=== PATIENT | female | born 1990 | race Asian ===

== ENCOUNTER → 2018-05-06 | Outpatient (CLI) | payer OTHER | LOC: M RAD 08:40 | DX: Z36.9 Encounter for antenatal screening, unspecified (principal); Z3A.20 20 weeks gestation of pregnancy | CPT/HCPCS: 76811 ==

== ENCOUNTER → 2018-05-25 | Outpatient (CLI) | payer OTHER | LOC: M RAD 13:05 | DX: O32.2XX0 Maternal care for transverse and oblique lie, not applicable or unspecified (principal); Z36.89 Encounter for other specified antenatal screening; Z3A.22 22 weeks gestation of pregnancy | CPT/HCPCS: 76817 ==

== ENCOUNTER → 2018-06-10 | Outpatient (CLI) | payer OTHER ==
[2018-06-10 16:06] LABS: HEMATOCRIT 40.8 % (36.0-47.0); HEMOGLOBIN 14.2 g/dl (12.0-15.5); MEAN CORPUSCULAR HEMOGLOBIN 32.1 pg (27.0-33.0); MEAN CORPUSCULAR HGB CONC 34.8 g/dl (32.0-36.5); MEAN CORPUSCULAR VOLUME 92.3 fl (80.0-96.0); PLATELET COUNT, AUTOMATED 225 10^3/uL (150-450); RED BLOOD COUNT 4.42 10^6/uL (4.00-5.40); RED CELL DISTRIBUTION WIDTH 13.8 % (11.5-14.5)
[2018-06-10 16:44] LABS: GLUCOSE CHALLENGE TEST 1 HOUR 174 MG/DL (LESS THAN 140)
[2018-06-10 16:44] LABS: FREE T4 1.06 NG/DL (0.76-1.46)
== END ==
LOC: M LAB 13:11
DX: Z34.82 Encounter for supervision of other normal pregnancy, second trimester (principal); Z36.89 Encounter for other specified antenatal screening

== ENCOUNTER → 2018-06-17 | Outpatient (CLI) | payer OTHER ==
[2018-06-17 08:07] LABS: GLUCOSE, FASTING 130 MG/DL (LESS THAN 95)
[2018-06-17 09:06] LABS: 1 HR GLUCOSE 273 MG/DL (LESS THAN 180)
[2018-06-17 09:57] LABS: 2 HR GLUCOSE 244 MG/DL (LESS THAN 155)
[2018-06-17 11:12] LABS: 3 HR GLUCOSE 142 MG/DL (LESS THAN 140)
== END ==
LOC: M LAB 07:07
DX: Z36.89 Encounter for other specified antenatal screening (principal); Z3A.00 Weeks of gestation of pregnancy not specified
CPT/HCPCS: 82951

== ENCOUNTER → 2018-06-21 | Outpatient (REF) | payer OTHER | LOC: M LAB REF 17:21 | DX: Z34.82 Encounter for supervision of other normal pregnancy, second trimester (principal) ==

== ENCOUNTER → 2018-07-20 | Outpatient (CLI) | payer OTHER | LOC: M RAD 08:54 | DX: O24.410 Gestational diabetes mellitus in pregnancy, diet controlled (principal) | CPT/HCPCS: 76816 ==

== ENCOUNTER → 2018-08-10 | Outpatient (CLI) | payer OTHER | LOC: M RAD 17:07 | DX: O24.410 Gestational diabetes mellitus in pregnancy, diet controlled (principal); Z3A.35 35 weeks gestation of pregnancy | CPT/HCPCS: 76816 ==

== ENCOUNTER → 2018-08-18 | Outpatient (REF) | payer OTHER ==
[~2018-08-18] MED LIST: IBUP-1114 PO; MAPA500T17 PO; METF500T13 PO; PRENTAB9 PO
== END ==
LOC: M LAB REF 17:11
PROVIDERS: ATTEND Obstetrics & Gynecology
DX: Z36.89 Encounter for other specified antenatal screening (principal); O09.213 Supervision of pregnancy with history of pre-term labor, third trimester; Z3A.00 Weeks of gestation of pregnancy not specified

== ENCOUNTER 2018-08-27 06:08 | Outpatient (CLI) | payer OTHER ==
[~2018-08-27] VITALS: Ht 157.5 cm; Wt 76.9 kg
[2018-08-27] MEDS ORDERED: METF500T13 PO (06:27)
[2018-08-27] MEDS ORDERED: PRENTAB9 PO (06:27)
[2018-08-27 06:29] VITALS: BP 115/82
[2018-08-27 07:11] VITALS: BP 129/74
[2018-08-27 08:04] VITALS: BP 114/70
--- NOTE | 2018-09-02 10:00 | IPN ---
DATE: 08/27/2018 28-year-old, (G) 2, para (P) 0, female at 36 and 6/7 weeks gestation who presents for removal of cerclage. Consent for cerclage removal is signed. OBJECTIVE: Afebrile. Vital signs stable. No apparent distress. Abdomen nontender. Gravid. heart tones Category 1. Contractions irregular. PROCEDURE NOTE: Speculum was placed in the vagina. Cerclage was visualized tied at the 12 o'clock position. Ring forceps used to grab it and elevate the stitch. Scissors were used to excise the stitch below the level of the knot. The stitch was removed in its entirety. The patient tolerated the procedure well. ASSESSMENT: 28-year-old, G2, P0, female at 36+ weeks gestation who presents for cerclage removal. Cerclage removed without difficulty. Cervix is 2-3 cm, 50% effaced, -2 station. Followup for routine care.
== END 2018-08-27 08:08 | disposition home or self-care (01) ==
LOC: M LDO 06:08
PROVIDERS: ATTEND Obstetrics & Gynecology
DX: O34.43 Maternal care for other abnormalities of cervix, third trimester (principal); N75.0 Cyst of Bartholin's gland; Z3A.36 36 weeks gestation of pregnancy
CPT/HCPCS: 59025; G0378; G0463

== ENCOUNTER 2018-09-03 16:06 | Inpatient (IN) | payer OTHER ==
[~2018-09-03] VITALS: Ht 157.5 cm; Wt 78.0 kg
[2018-09-03] VITALS (22 sets, daily range): BP systolic 77–189; BP diastolic 42–134
[~2018-09-03 16:06] MED LIST changes: -IBUP-1114 PO; -MAPA500T17 PO
[2018-09-03] MEDS ORDERED: LACTATED RINGER'S 1000 ML IV STA (16:46)
[2018-09-03] MEDS ORDERED: LR 1,000 ML IV SCH ×2 (17:00→19:52)
--- NOTE | 2018-09-03 17:29 | IPNPDOC ---
Text Note Date of Service The patient was seen on 09/03/18. NOTE Subjective: 28-year-old admitted for rupture of membranes and contractions. She is uncomfortable and would like an epidural. Objective: Gravid and visibly uncomfortable. Bartholin cyst is noted on the right. heart rate: Category 1 tracing, baseline is about 150 bpm, moderate variability, accelerations and no decelerations. Difficult to monitor due to maternal discomfort. Florin: Contractions every 2-3 minutes Assessment: 28-year-old admitted for rupture of membranes and contractions Plan: FSE applied for better monitoring. Patient will get an epidural once her lab results are back GME ATTESTATION GME ATTESTATION My faculty preceptor for this patient encounter was physically present during the encounter and was fully available. All aspects of the patient interview, examination, medical decision making process, and medical care plan development were reviewed and approved by the faculty preceptor. The faculty preceptor is aware and concurs with the plan as stated in the body of this note and will attest to such by his/her cosignature. HAFSA DAY DO Sep 03, 2018 17:29 Blessing Kohler CNM Sep 03, 2018 17:51
[2018-09-03 17:32] LABS: HEMATOCRIT 44.7 % (36.0-47.0); HEMOGLOBIN 15.9 g/dl (12.0-15.5); MEAN CORPUSCULAR HEMOGLOBIN 31.8 pg (27.0-33.0); MEAN CORPUSCULAR HGB CONC 35.6 g/dl (32.0-36.5); MEAN CORPUSCULAR VOLUME 89.4 fl (80.0-96.0); PLATELET COUNT, AUTOMATED 226 10^3/uL (150-450); WHITE BLOOD COUNT 13.9 10^3/uL (4.0-10.0)
[2018-09-03] MEDS ORDERED: FENTANYL 2MCG/ML ROPIVACAINE 0.2% IN 0.9% NACL 100ML IVBAG As Ordered ONE (18:03)
[2018-09-03] MEDS ORDERED: FENTANYL/ROPIVACAINE/NACL BAG 100 ML EPIDURAL SCH (18:30)
[2018-09-03] MEDS ORDERED: diphenhydrAMINE INJ 50MG/ML VIAL (J1200) IV PRN (18:30)
[2018-09-03] MEDS ORDERED: LACTATED RINGER'S 1000 ML IV PRN (18:30)
[2018-09-03] MEDS ORDERED: EPIDURAL COMMENT XX SCH (18:30)
[2018-09-03] MEDS ORDERED: EPIDURAL/PCA KEYS XX PRN (18:30)
[2018-09-03] MEDS ORDERED: NALOXONE INJ 0.4 MG/1 ML VIAL (J2310) IV PRN (18:30)
[2018-09-03] MEDS ORDERED: ONDANSETRON 4MG/2ML VIAL (J2405) IV PRN (18:30)
[2018-09-03] MEDS ORDERED: REFRIGERATOR IV KEYS XX PRN (18:30)
--- NOTE | 2018-09-03 18:33 | HPE ---
DATE OF ADMISSION: 09/03/2018 CHIEF COMPLAINT: Rupture of membranes. HISTORY OF PRESENT ILLNESS: Velasquez is a 28-year-old G2, P-01-0-0 at 36 weeks 6 days estimated gestational age by first-trimester ultrasound dated 03/18/2018. Her estimated date of confinement is 09/25/2018. She is presenting complaining of contractions that started around noon. She states that they are about every 5 minutes and last for about 30 seconds. When she sat down in the triage area, she had a large gush of fluid that was clear. She is feeling the baby move. She denies any bleeding or discharge. COURSE: The patient initiated care with [facility] in the first trimester. She had a Carter cerclage placed at 13 weeks and received Killona injections starting at 16 weeks. Her cerclage was removed 08/27/2018. She was also diagnosed A2 gestational diabetes and is on metformin 500 mg daily. LABORATORIES: Blood type is B positive, antibody screen negative, rubella immune, VDRL nonreactive, hepatitis B surface antigen negative, HIV negative, hepatitis C nonreactive, chlamydia negative, gonorrhea negative. Hope showed low probability female fetus. Her diabetes screen was 174. A 3-hour GTT was 130/273/244/142. The patient is GBS negative. OBSTETRICAL ULTRASOUND: Anatomy scan from 05/06/2018 showed an anterior placenta without previa or abruption. Most recent ultrasound from 08/10/2018 showed cephalic presentation without anomaly. OBSTETRICAL HISTORY: In 2017 premature delivery of a fetus at 22 weeks gestational age. MEDICAL HISTORY: 1. A2 gestational diabetes mellitus. 2. Bartholin cyst. MEDICATIONS: - metformin 500 mg daily - vitamins - Killona injections, last dose given on 09/01/2018. PAST SURGERIES: None. ALLERGIES: None. SOCIAL HISTORY: The patient is . Denies any tobacco, alcohol, or drugs. PHYSICAL EXAMINATION: VITAL SIGNS: Blood pressure 142/92, pulse 111, temperature 98.0, respiratory rate 18. ABDOMEN: Gravid. Sterile vaginal exam was 3 cm dilated, 90% effaced, -1 station monitor: Category 1 tracing with a baseline of 150 beats per minute. Moderate variability. Acceleratoins. No decelerations.. Tocometer: Contractions every 3-4 minutes. ASSESSMENT AND PLAN: 1. Intrauterine (IUP) at 36 weeks 6 days estimated gestation who is presenting grossly ruptured in active labor. 2. GBS negative. No antibiotics are necessary. 3. Anticipate spontaneous panel delivery. My faculty preceptor for this patient encounter was physically present during the encounter and was fully available. All aspects of the patient interview, examination, medical decision making process, and medical care plan development were reviewed and approved by the faculty preceptor. The faculty preceptor is aware and concurs with the plan as stated in the body of this note and will attest to such by his/her co-signature.
[2018-09-03] MEDS: ePHEDrine SULFATE 25 MG/5 ML(5MG/ML) SYRINGE IV PRN ×2 (19:17→19:23)
--- NOTE | 2018-09-03 19:38 | IPNPDOC ---
Text Note Date of Service The patient was seen on 09/03/18. NOTE Comfortable with epidural UC 2-3 minutes apart x 45-60 seconds FH 150, moderate variability, + accels SVE 6/100/-1 Fluid remains clear Consider pitocin augmentation VS,Fishbone, I+O VS, Fishbone, I+O Laboratory Tests 09/03/18 17:18 Red Blood Count 5.00, Mean Corpuscular Volume 89.4, Mean Corpuscular Hemoglobin 31.8, Mean Corpuscular Hemoglobin Concent 35.6, Red Cell Distribution Width 14.6 H Blessing Kohler CNM Sep 03, 2018 19:38
[2018-09-03] MEDS ORDERED: OXYTOCIN DRIP 30 UNITS in APPROPRIATE DILUENT 1 EA IV SCH (20:00)
[2018-09-03 23:24] LABS: CORD GAS ABE A -6.4; CORD GAS ABE V -5.4; CORD GAS HCO3 A 21.5 MEQ/L; CORD GAS HCO3 V 19.9 MEQ/L; CORD GAS O2 SAT A 72.4 %; CORD GAS O2 SAT V 81.9 %; CORD GAS PCO2 A 51.7 mmHg; CORD GAS PCO2 V 38.7 mmHg; CORD GAS PH A 7.237 UNITS; CORD GAS PH V 7.33 UNITS; CORD GAS SBC A 18.7 MEQ/L; CORD GAS SBC V 19.7 MEQ/L; CORD GAS TCO2 A 23.1 MEQ/L; CORD GAS TCO2 V 21.1 MEQ/L
[2018-09-04] VITALS (11 sets, daily range): BP systolic 112–176; BP diastolic 64–82
[2018-09-04] MEDS ORDERED: MEASLES,MUMPS,RUBELLA VACCINE INJ (MMR-II) (90707) SC SCH (00:30)
[2018-09-04] MEDS ORDERED: DOCUSATE SODIUM 100 MG CAP PO PRN (00:30)
[2018-09-04] MEDS ORDERED: RHOGAM 300 MCG (1500 IU) INJ (J2790) IM SCH (00:30)
[2018-09-04] MEDS ORDERED: METHYLERGONOVINE MALEATE 0.2 MG TAB PO PRN (00:30)
[2018-09-04] MEDS ORDERED: DIBUCAINE 1% OINTMENT 30GM TOP PRN (00:30)
[2018-09-04] MEDS ORDERED: MOM 30ML SUSPENSION UDC PO PRN (00:30)
[2018-09-04] MEDS ORDERED: ANUSOL HC CREAM 30GM TOP PRN (00:30)
[2018-09-04] MEDS ORDERED: LIDOCAINE 1% MDV 20ML VIAL INFIL ONE (00:30)
--- NOTE | 2018-09-04 00:36 | DNPDOC ---
[facility] Delivery Note Delivery Note DATE OF DELIVERY: 09/03/18 PREDELIVERY DIAGNOSIS: 36+6/7 weeks' gestation and labor. POST DELIVERY DIAGNOSIS: Delivered. PROCEDURE: Spontaneous vaginal delivery. sebaceous cyst drainage PROVIDER: Blessing Kohler CNM ANESTHESIA: Epidural. ESTIMATED BLOOD LOSS: 500 mL. FINDINGS: 6 pound 7 ounce, 2930gm female infant, Score 8/9, no nuchal cord. DELIVERY SUMMARY: Patient is a 28-year-old 2 now para 1-1-0-1 who was ad mitted to labor and delivery for spontaneous rupture of membranes and contractions. She utilized an epidural for labor coping. Viable female child delivered EMELYN without difficulty @ 2313. Spontaneous respirations with stimulation. Transitioned on maternal abdomen. Cord gases obtained, arterial 7.237 BE -6.4, venous 7.330 BE -5.4. Cord doubly clamped and cut once pulsations ceased by FOB under my direction. Apgars 8/9. Placenta penn, intact with 3v cord @ 2322. Fundus firmed with massage and IV pitocin bolus. L labial sebaceous cyst infiltrated with lidocaine, lanced releasing moderate amount serosanguinous fluid. C&S obtained. 2nd degree perineal laceration and bilateral labial abrasions and cyst location reapproximated with 3-0 vicryl rapide. EBL 500ml. Sponge, sharp and instrument count correct at close of procedure. Blessing Kohler CNM Sep 04, 2018 00:36
[2018-09-04] MEDS: IBUPROFEN 800 MG TAB PO PRN ×3 (03:41→20:39)
[2018-09-04] MEDS: ACETAMINOPHEN 500 MG TAB PO PRN ×2 (06:54→15:16)
[2018-09-04] MEDS: PRENATAL VITAMINS CHEWABLE TABLET PO SCH (08:08)
[2018-09-05] MEDS: IBUPROFEN 800 MG TAB PO PRN (05:27)
[2018-09-05 05:58] VITALS: BP 121/72
[2018-09-05] MEDS: PRENATAL VITAMINS CHEWABLE TABLET PO SCH (08:58)
[2018-09-05] MEDS ORDERED: ADACEL/BOOSTRIX VACCINE (DIPHTH/PERTUSS/ACELL/TETANUS)0.5ML SYR (90715) IM ONE (09:00)
[2018-09-05] MEDS ORDERED: MAPA500T2 PO (10:22)
[2018-09-05] MEDS ORDERED: IBUP-1114 PO (10:22)
--- NOTE | 2018-09-05 10:22 | NUR ---
Day 1 Status post , uncomplicated Subjective Pain is well controlled. Lochia decreasing and minimal. Voiding spontaneously. Tolerating a regular diet. Ambulating without any assistance. Denies any subjective fever/chills/nausea/vomiting/headache/visual changes/shortness of breath/chest pain. Objective Vitals: Normotensive, normal heart rate, afebrile, adequate urine output. Heart: regular, rate, and rhythm. no murmurs/gallops/rubs Lungs: clear to auscultation bilaterally, no wheezes/crackles/rales/ronchi Abd: soft, nontender, nondistended, uterine fundus is 2cm below umbilicus and firm Ext: no significant edema, nontender, negative Brenden's bilaterally. Assessment/Plan: day 1. Recovering well. Hemodynamically stable, afebrile, good pain control. -Routine care -Discharge to home today. -Routine infectious, fever, pain, and bleeding precautions reviewed Shahana Pratt.More., F.A.C.O.G.
== END 2018-09-05 14:30 | disposition home or self-care (01) | DRG 807 ==
LOC: M LDO 16:06 → M LDI 16:45 → M OBS 09-04 03:02
PROVIDERS: ADMIT Advanced Practice Midwife; ATTEND Advanced Practice Midwife
PROC: 10E0XZZ Delivery of Products of Conception, External Approach (ICD-10-PCS; principal; 2018-09-03)
PROC: 0KQM0ZZ Repair Perineum Muscle, Open Approach (ICD-10-PCS; 2018-09-03)
PROC: 0U9LXZZ Drainage of Vestibular Gland, External Approach (ICD-10-PCS; 2018-09-03)
DX: O24.425 Gestational diabetes mellitus in childbirth, controlled by oral hypoglycemic drugs (principal); Z37.0 Single live birth; Z3A.36 36 weeks gestation of pregnancy; N75.0 Cyst of Bartholin's gland

== ENCOUNTER → 2018-09-28 | Outpatient (REF) | payer OTHER ==
[~2018-09-28] MED LIST changes: +IBUP-1114 PO; +MAPA500T2 PO
[2018-09-28 16:27] LABS: ALBUMIN 3.8 GM/DL (3.2-5.2); ALT/SGPT 35 U/L (12-78); BILIRUBIN,TOTAL 0.3 MG/DL (0.2-1.0); BLOOD UREA NITROGEN 8 MG/DL (7-18); CALCIUM LEVEL 9.3 MG/DL (8.5-10.1); CARBON DIOXIDE LEVEL 28 MEQ/L (21-32); CHLORIDE LEVEL 104 MEQ/L (98-107); CREATININE FOR GFR 0.59 MG/DL (0.55-1.30); GLOMERULAR FILTRATION RATE > 60.0 (>60); GLUCOSE, FASTING 77 MG/DL (70-100); POTASSIUM SERUM 4.2 MEQ/L (3.5-5.1); SODIUM LEVEL 140 MEQ/L (136-145); TOTAL PROTEIN 7.3 GM/DL (6.4-8.2)
[2018-09-28 16:29] LABS: HEMOGLOBIN A1c 5.6 %
== END ==
LOC: M SFHCPLAZ 13:55
PROVIDERS: ATTEND Nurse Practitioner Family
DX: Z86.32 Personal history of gestational diabetes (principal)
CPT/HCPCS: 36415; 80053; 83036; G0463

== ENCOUNTER → 2018-11-30 | Outpatient (REF) | payer OTHER ==
[2018-12-02 14:14] LABS: HPV HYBRID CAPTURE II Negative (Negative)
== END ==
LOC: M LAB REF 13:15
PROVIDERS: ATTEND Advanced Practice Midwife
DX: Z12.4 Encounter for screening for malignant neoplasm of cervix (principal)
CPT/HCPCS: 87624; G0123

== ENCOUNTER → 2019-01-12 | Outpatient (REF) | payer OTHER ==
[2019-01-12 15:58] LABS: ALBUMIN 3.8 GM/DL (3.2-5.2); ALT/SGPT 27 U/L (12-78); BILIRUBIN,TOTAL 0.5 MG/DL (0.2-1.0); BLOOD UREA NITROGEN 12 MG/DL (7-18); CALCIUM LEVEL 8.6 MG/DL (8.5-10.1); CARBON DIOXIDE LEVEL 28 MEQ/L (21-32); CHLORIDE LEVEL 105 MEQ/L (98-107); CREATININE FOR GFR 0.67 MG/DL (0.55-1.30); GLOMERULAR FILTRATION RATE > 60.0 (>60); GLUCOSE, FASTING 94 MG/DL (70-100); SODIUM LEVEL 138 MEQ/L (136-145); TOTAL PROTEIN 7.6 GM/DL (6.4-8.2)
[2019-01-12 16:08] LABS: HEMOGLOBIN A1c 5.1 %
== END ==
LOC: M SFHCPLAZ 11:15
PROVIDERS: ATTEND Nurse Practitioner Family
DX: Z86.32 Personal history of gestational diabetes (principal)
CPT/HCPCS: 36415; 80053; 83036; G0463

== ENCOUNTER → 2020-05-10 | Outpatient (CLI) | payer OTHER ==
[2020-05-10 19:00] LABS: HEPATITIS B CORE ANTIBODY IGM NEGATIVE (NEGATIVE); HEPATITIS B SURFACE ANTIBODY POSITIVE (POSITIVE); HEPATITIS B SURFACE ANTIGEN NEGATIVE (NEGATIVE)
== END ==
LOC: M PLALAB 14:48
PROVIDERS: ATTEND Nurse Practitioner Family
DX: Z11.59 Encounter for screening for other viral diseases (principal)

== ENCOUNTER → 2022-04-20 | Outpatient (REF) | LOC: M LABSMTC 09:33 | PROVIDERS: ATTEND Family Medicine | DX: Z00.00 Encounter for general adult medical examination without abnormal findings (principal) ==

== ENCOUNTER → 2022-05-20 | Outpatient (CLI) | payer OTHER ==
[2022-05-20 16:30] LABS: BLOOD UREA NITROGEN 10 MG/DL (7-18); CALCIUM LEVEL 9.3 MG/DL (8.5-10.1); CARBON DIOXIDE LEVEL 26 MEQ/L (21-32); CHLORIDE LEVEL 106 MEQ/L (98-107); CHOLESTEROL LEVEL 199 MG/DL (<200); CHOLESTEROL RISK RATIO 3.553 (<5); CREATININE FOR GFR 0.67 MG/DL (0.55-1.30); GLOMERULAR FILTRATION RATE > 60.0 (>60); GLUCOSE, FASTING 104 MG/DL (70-100); HDL CHOLESTEROL 56 MG/DL (>40); LDL CHOLESTEROL 120 MG/DL (<100); NON-HDL-C 143 MG/DL; SODIUM LEVEL 139 MEQ/L (136-145); TRIGLYCERIDES LEVEL 115 MG/DL (<150)
[2022-05-20 19:37] LABS: HEMOGLOBIN A1c 4.9 %
== END ==
LOC: M PLALAB 14:17
PROVIDERS: ATTEND Family Medicine
DX: Z00.00 Encounter for general adult medical examination without abnormal findings (principal); Z23 Encounter for immunization
CPT/HCPCS: 36415; 80048; 80061; 83036; 90471; 90682; G0463